=== PATIENT | female | born 2005 | race Hispanic/Latino ===

== ENCOUNTER 2023-06-13 15:40 | Day surgery (SDC) | payer OTHER ==
[2023-06-13] MEDS ORDERED: hydrALAZINE 20 MG/ML VIAL SLOW IVP PRN (16:10)
[2023-06-13] MEDS ORDERED: Lactated Ringer's 1,000 ML IV SCH (16:30)
[2023-06-13 16:45] LABS: Bilirubin Neg (Negative); Blood, Urine Negative (Negative); Clarity Clear (Clear); Glucose, Urine (Dipstick) Normal (Negative); Ketone, Urine 50 mg/dL (Negative); Leukocyte Negative (Negative); Nitrite Negative (Negative); Protein, Urine (Dipstick) Negative (Neg-Trace); Specific Gravity, Urine 1.015 (1.005-1.030)
[2023-06-13] MEDS ORDERED: Acetaminophen 325 MG TAB PO SCH (16:45)
[2023-06-13 17:04] LABS: Bacteria/HPF Rare-Few HPF (None Seen); CAUTI Indications for Culture Pregnancy; RBC/HPF 0-3 HPF (0-3); Squamous Epithelial 0-3 HPF (0-3); WBC/HPF 0-3 HPF (0-3)
[2023-06-13 17:05] LABS: Urine Culture Reflex Yes Yes
[2023-06-13 17:16] VITALS: BMI 40.1
[2023-06-13 17:22] LABS: SARS-CoV-2 NAA Rapid Test Not Detected (NotDetected)
[2023-06-13 17:55] LABS: #Monocytes 0.7 10x3/uL (0.0-1.1); #Neutrophils 9.2 10x3/uL (1.5-8.4); %Basophils 0.2 % (0.0-2.0); %Eosinophils 0.1 % (0.0-6.0); %Lymphocytes 9.8 % (18.0-47.0); %Monocytes 5.9 % (0.0-10.0); %Neutrophils 83.5 % (40.0-75.0); Hematocrit 29.2 % (34.9-44.5); Hemoglobin 9.7 g/dL (12.0-15.5); Mean Corpuscular HGB CONC 33.2 g/dL (32.0-36.0); Mean Corpuscular Hemoglobin 27.2 pg (27.0-33.0); Mean Platelet Volume 9.9 fl (7.4-10.4); Platelet Count 312 10x3/uL (150-450); RBC Distribution Width 13.1 % (11.5-14.5); Red Blood Cell (RBC) Count 3.56 10x6/uL (3.90-5.03)
[2023-06-13 18:05] LABS: ALT (SGPT) 14 U/L (8-55); AST (SGOT) 16 U/L (5-34); Alkaline Phosphatase 120 U/L (40-100); Anion Gap 10 mmol/L (10-20); BUN (Urea Nitrogen) 4 mg/dL (7.0-18.7); Bilirubin, Total 0.6 mg/dL (0.2-1.2); Calc. Creatinine Clearance 281 mL/min (70-130); Calcium 8.3 mg/dL (7.8-10.44); Carbon Dioxide 22 mmol/L (22-29); Chloride 103 mmol/L (98-107); Estimated GFR 136; Globulin 3.1 g/dL (2.4-3.5); Glucose 110 mg/dL (70-105); Potassium 3.2 mmol/L (3.5-5.1); Protein, Total 6.1 g/dL (6.0-8.3); Sodium 132 mmol/L (136-145)
[2023-06-13] MEDS ORDERED: Potassium Chloride 20 MEQ TAB PO SCH (18:15)
== END 2023-06-13 20:13 | disposition home or self-care (01) ==
LOC: CSHLD/OP 15:40
PROVIDERS: ATTEND Family Medicine
DX: O98.513 Other viral diseases complicating pregnancy, third trimester (principal); B34.9 Viral infection, unspecified; O36.8130 Decreased fetal movements, third trimester, not applicable or unspecified; O99.891 Other specified diseases and conditions complicating pregnancy; R00.0 Tachycardia, unspecified; O99.283 Endocrine, nutritional and metabolic diseases complicating pregnancy, third trimester; E87.6 Hypokalemia; Z3A.30 30 weeks gestation of pregnancy
CPT/HCPCS: 36415; 76819; 80053; 81001; 85025; 87081; 87086; 87430

== ENCOUNTER 2023-08-04 10:18 | Inpatient (IN) | payer OTHER ==
[2023-08-04] MEDS ORDERED: hydrALAZINE 20 MG/ML VIAL SLOW IVP PRN (10:30)
[2023-08-04] MEDS ORDERED: Misoprostol 200 MCG TAB PR PRN (10:30)
[2023-08-04] MEDS ORDERED: Diphenoxylate HCl/Atropine Tablet PO PRN (10:30)
[2023-08-04] MEDS ORDERED: Tranexamic Acid 1,000 MG/10 ML VIAL IVP PRN (10:30)
[2023-08-04] MEDS ORDERED: HYDROcodone/Acetaminophen 5/325 mg Tablet PO PRN (10:30)
[2023-08-04] MEDS ORDERED: Acetaminophen 500 MG TAB PO PRN (10:30)
[2023-08-04] MEDS ORDERED: Ibuprofen 800 MG TAB PO PRN (10:30)
[2023-08-04] MEDS ORDERED: Ondansetron PF 4 MG/2 ML Vial IVP PRN (10:30)
[2023-08-04] MEDS ORDERED: Carboprost 250 MCG/ML AMP IM PRN (10:30)
[2023-08-04] MEDS ORDERED: Oxytocin 30 units/NS 500 ML 500 ML IV SCH ×3 (10:30)
[2023-08-04] MEDS ORDERED: Promethazine HCl 25 MG/ML VIAL IM PRN (10:30)
[2023-08-04] MEDS ORDERED: Methylergonovine 0.2 MG/ML VIAL IM PRN (10:30)
[2023-08-04] MEDS ORDERED: Lidocaine 1% (PF) 30 ML VIAL SC PRN (10:30)
[2023-08-04] MEDS ORDERED: fentaNYL 50 mcg/mL 1 mL Vial SLOW IVP PRN (10:30)
[2023-08-04] MEDS: Lactated Ringer's 1,000 ML IV SCH (10:55)
[2023-08-04] MEDS: CEFAZOLIN 2 GM in Sodium Chloride 0.9% 100 ML IVPB SCH ×2 (11:10→16:34)
[2023-08-04 11:40] VITALS: BMI 39.9
[2023-08-04 11:45] LABS: Hematocrit 34.5 % (34.9-44.5); Hemoglobin 11.5 g/dL (12.0-15.5); Mean Corpuscular HGB CONC 33.3 g/dL (32.0-36.0); Mean Corpuscular Hemoglobin 26.4 pg (27.0-33.0); Mean Corpuscular Volume 79.1 fl (81.6-98.3); Mean Platelet Volume 9.9 fl (7.4-10.4); Platelet Count 338 10x3/uL (150-450); RBC Distribution Width 14.2 % (11.5-14.5); Red Blood Cell (RBC) Count 4.36 10x6/uL (3.90-5.03); White Blood Cell (WBC) Count 5.8 10x3/uL (3.5-10.5)
[2023-08-04 12:29] LABS: Syphilis Antibody Nonreactive (Nonreactive); Syphilis Antibody Index 0.04 S/CO (<1.00 Non-Reactive)
[2023-08-04 12:30] LABS: HBSAg Index 0.21 S/CO (0-0.99); Hep B Surf Ag - L&D Non-Reactive S/CO (NonReactive)
[2023-08-05] MEDS ORDERED: Bisacodyl 10 MG SUPP PR PRN (02:04)
[2023-08-05] MEDS ORDERED: Ondansetron PF 4 MG/2 ML Vial IVP PRN (02:04)
[2023-08-05] MEDS ORDERED: Boostrix 0.5 ML (Tdap) VIAL (>/=7 yrs of age) IM ONE (02:04)
[2023-08-05] MEDS ORDERED: HYDROcodone/Acetaminophen 5/325 mg Tablet PO PRN (02:04)
[2023-08-05] MEDS ORDERED: hydrALAZINE 20 MG/ML VIAL SLOW IVP PRN (02:04)
[2023-08-05] MEDS ORDERED: Milk Of Magnesia 30 ML UDCUP PO PRN (02:04)
[2023-08-05] MEDS ORDERED: Promethazine HCl 25 MG/ML VIAL IM PRN (02:04)
[2023-08-05] MEDS ORDERED: diphenhydrAMINE 25 MG CAP PO PRN (02:04)
[2023-08-05] MEDS ORDERED: Lanolin Ointment 7 GM TUBE TOP PRN (02:04)
[2023-08-05] MEDS: Lactated Ringer's 1,000 ML IV SCH (02:05)
[2023-08-05] MEDS: CEFAZOLIN 2 GM in Sodium Chloride 0.9% 100 ML IVPB SCH (02:06)
[2023-08-05] MEDS: Ibuprofen 800 MG TAB PO SCH ×3 (05:43→21:25)
[2023-08-05] MEDS: Ferrous Sulfate 325 MG TAB PO SCH ×2 (07:18→20:26)
[2023-08-05] MEDS: Prenatal Vitamin 1 TAB PO SCH (09:12)
[2023-08-05] MEDS: Docusate 100 MG CAP PO SCH ×2 (09:12→21:25)
[2023-08-06] MEDS: Ibuprofen 800 MG TAB PO SCH (05:30)
[2023-08-06] MEDS: Docusate 100 MG CAP PO SCH (07:58)
[2023-08-06] MEDS: Prenatal Vitamin 1 TAB PO SCH (07:59)
[2023-08-06] MEDS: Ferrous Sulfate 325 MG TAB PO SCH (08:00)
[2023-08-06 08:10] VITALS: BP 95/51; TEMP 97.8
== END 2023-08-06 11:30 | disposition home or self-care (01) | DRG 807 ==
LOC: CSHLD 10:18 → CSHPED 08-05 01:50
PROVIDERS: ADMIT Family Medicine; ATTEND Family Medicine
PROC: 10E0XZZ Delivery of Products of Conception, External Approach (ICD-10-PCS; principal; 2023-08-04)
PROC: 10907ZC Drainage of Amniotic Fluid, Therapeutic from Products of Conception, Via Natural or Artificial Opening (ICD-10-PCS; 2023-08-04)
DX: O99.824 Streptococcus B carrier state complicating childbirth (principal); Z37.0 Single live birth; Z3A.38 38 weeks gestation of pregnancy
CPT/HCPCS: 85027; 86780; 86850; 86900; 86901; 87340; J2210; J2590; J3490; J7120

== ENCOUNTER 2024-06-15 17:21 | Inpatient (IN) | payer OTHER ==
[2024-06-15 18:44] VITALS: BMI 38.9
[2024-06-15] MEDS ORDERED: Promethazine HCl 25 MG/ML VIAL IM PRN (20:00)
[2024-06-15] MEDS ORDERED: Oxytocin 30 units/NS 500 ML 500 ML IVPB SCH (20:00)
[2024-06-15] MEDS ORDERED: Methylergonovine 0.2 MG/ML VIAL IM PRN (20:00)
[2024-06-15] MEDS ORDERED: Misoprostol 200 MCG TAB RC PRN (20:00)
[2024-06-15] MEDS ORDERED: Carboprost 250 MCG/ML AMP IM PRN (20:00)
[2024-06-15] MEDS ORDERED: Ondansetron PF 4 MG/2 ML Vial IVP PRN (20:00)
[2024-06-15] MEDS ORDERED: hydrALAZINE 20 MG/ML VIAL SLOW IVP PRN (20:00)
[2024-06-15] MEDS ORDERED: Diphenoxylate HCl/Atropine Tablet PO PRN ×2 (20:00)
[2024-06-15] MEDS ORDERED: Acetaminophen 500 MG TAB PO PRN (20:00)
[2024-06-15] MEDS ORDERED: fentaNYL 50 mcg/mL 1 mL Vial SLOW IVP PRN (20:04)
[2024-06-15] MEDS ORDERED: Tranexamic Acid 1,000 MG/10 ML VIAL IVP PRN (20:07)
[2024-06-15] MEDS: CEFAZOLIN 2 GM in Sodium Chloride 0.9% 100 ML IVPB SCH (20:13)
[2024-06-15 20:37] LABS: Hematocrit 37.6 % (34.9-44.5); Mean Corpuscular HGB CONC 31.9 g/dL (32.0-36.0); Mean Corpuscular Hemoglobin 25.1 pg (27.0-33.0); Mean Corpuscular Volume 78.5 fL (81.6-98.3); Mean Platelet Volume 9.6 fL (7.4-10.4); Platelet Count 317 10x3/uL (150-450); RBC Distribution Width 15.1 % (11.5-14.5); Red Blood Cell (RBC) Count 4.79 10x6/uL (3.90-5.03); White Blood Cell (WBC) Count 11.2 10x3/uL (3.5-10.5)
[2024-06-15] MEDS: CEFAZOLIN 2 GM VIAL ONE (20:38)
[2024-06-15] MEDS: Oxytocin 30 units/NS 500 ML 500 ML IVPB SCH (22:05)
[2024-06-15 22:53] LABS: Syphilis Antibody Nonreactive (Nonreactive); Syphilis Antibody Index 0.03 S/CO (<1.00 Non-Reactive)
[2024-06-15 22:56] LABS: Hep B Surf Ag - L&D Non-Reactive S/CO (NonReactive)
[2024-06-16] MEDS: CEFAZOLIN 1 GM in Sodium Chloride 0.9% 100 ML IVPB SCH (00:10)
[2024-06-16] MEDS: Ibuprofen 800 MG TAB PO PRN (00:12)
[2024-06-16] MEDS ORDERED: Lanolin Ointment 7 GM TUBE TOP PRN (00:45)
[2024-06-16] MEDS ORDERED: Milk Of Magnesia 30 ML UDCUP PO PRN (00:45)
[2024-06-16] MEDS ORDERED: diphenhydrAMINE 25 MG CAP PO PRN (00:45)
[2024-06-16] MEDS ORDERED: Boostrix 0.5 ML (Tdap) VIAL (>/=7 yrs of age) IM ONE (00:45)
[2024-06-16] MEDS ORDERED: Ondansetron PF 4 MG/2 ML Vial IVP PRN (00:45)
[2024-06-16] MEDS ORDERED: HYDROcodone/Acetaminophen 5/325 mg Tablet PO PRN (00:45)
[2024-06-16] MEDS ORDERED: Promethazine HCl 25 MG/ML VIAL IM PRN (00:45)
[2024-06-16] MEDS ORDERED: hydrALAZINE 20 MG/ML VIAL SLOW IVP PRN (00:45)
[2024-06-16] MEDS ORDERED: Bisacodyl 10 MG SUPP PR PRN (00:45)
[2024-06-16] MEDS ORDERED: Ibuprofen 800 MG TAB PO SCH (06:00)
[2024-06-16] MEDS: Ferrous Sulfate 325 MG TAB PO SCH (08:02)
[2024-06-16] MEDS: Ibuprofen 800 MG TAB PO SCH (08:52)
[2024-06-16] MEDS: Docusate 100 MG CAP PO SCH (08:52)
[2024-06-16] MEDS: Prenatal Vitamin 1 TAB PO SCH (08:52)
[2024-06-17 11:31] VITALS: BP 99/57; TEMP 97.1
== END 2024-06-17 16:30 | disposition home or self-care (01) | DRG 807 ==
LOC: CSHLD/OP 17:21 → CSHLD 18:40 → CSHPP 06-16 00:40
PROVIDERS: ADMIT Family Medicine; ATTEND Family Medicine
PROC: 10E0XZZ Delivery of Products of Conception, External Approach (ICD-10-PCS; principal; 2024-06-15)
PROC: 10907ZC Drainage of Amniotic Fluid, Therapeutic from Products of Conception, Via Natural or Artificial Opening (ICD-10-PCS; 2024-06-15)
DX: O99.824 Streptococcus B carrier state complicating childbirth (principal); Z37.0 Single live birth; O99.214 Obesity complicating childbirth; Z79.82 Long term (current) use of aspirin; E66.9 Obesity, unspecified; Z3A.39 39 weeks gestation of pregnancy; Z88.0 Allergy status to penicillin
CPT/HCPCS: 36415; 85027; 86780; 86850; 86900; 86901; 87340; 99285; J2590